=== PATIENT | female | born 1960 | race Caucasian/White ===

== ENCOUNTER 2018-08-17 22:23 | Emergency (ER) | payer MEDICAID ==
[~2018-08-17] VITALS: Ht 165.1 cm; Wt 67.6 kg
[2018-08-17 22:30] VITALS: BP 140/56
--- NOTE | 2018-08-17 22:32 | NUR ---
TO LOBBY A/W BED, AMBULATORY
--- NOTE | 2018-08-17 23:00 | NUR ---
PT AMBULATED TO BED 6
[2018-08-17] MEDS ORDERED: KETOROLAC 60 MG/2 ML VIAL IM ONE (23:40)
--- NOTE | 2018-08-18 00:04 | NUR ---
PT STATES SHE IS ALLERGIC TO TORADOL. MED GIVES HER A RASH AND MAKES THROAT ITCHY. Addendum: 08/18/18 at [address] MIRANDA NOTIFIED.
[2018-08-18 00:25] VITALS: BP 140/56
--- NOTE | 2018-08-18 00:25 | NUR ---
Patient discharged with v/s stable. Written and verbal after care instructions given and explained. Patient alert, oriented and verbalized understanding of instructions. Ambulatory with steady gait. All questions addressed prior to discharge. ID band removed. Patient advised to follow up with PMD. Rx of LACTULOSE, ROBAXIN, MIRALAX, AND NAPROSYN given. Patient educated on indication of medication including possible reaction and side effects. Opportunity to ask questions provided and answered.
== END 2018-08-18 00:25 | disposition home or self-care (01) ==
LOC: MED 22:23
DX: M54.42 Lumbago with sciatica, left side (principal); K59.00 Constipation, unspecified; M25.552 Pain in left hip; G43.909 Migraine, unspecified, not intractable, without status migrainosus; Z88.0 Allergy status to penicillin
CPT/HCPCS: 99284; J1885

== ENCOUNTER 2019-05-12 13:48 | Inpatient (IN) | payer MEDICAID ==
[~2019-05-12] VITALS: Ht 157.5 cm; Wt 59.0 kg
[2019-05-12 14:10] VITALS: BP 109/66
--- NOTE | 2019-05-12 14:16 | NUR ---
PT WHEELCHAIRED TO ER BED 04
--- NOTE | 2019-05-12 14:17 | NUR ---
INFORMED DR MARTINEZ OF PT STATUS. NO CHANGE IN ORDERS.
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
[2019-05-12] MEDS ORDERED: ACETAMINOPHEN EXTRA STRENGTH 500 MG TAB PO ONE (14:35)
[2019-05-12] MEDS ORDERED: ACETAMINOPHEN EXTRA STRENGTH 500 MG TAB ONE (14:36)
--- NOTE | 2019-05-12 15:03 | NUR ---
REPORT TO SHEMAR ALANIS. PRIMARY NURSE.
--- NOTE | 2019-05-12 15:48 | NUR ---
DR. MARTINEZ AT BEDSIDE.
--- NOTE | 2019-05-12 16:00 | NUR ---
PT TAKEN TO BATHROOM FOR URINE SAMPLE VIA WHEELCHAIR.
[2019-05-12] MEDS ORDERED: NACL 0.9% 1,000 ML IV SCH (16:02)
[2019-05-12] MEDS ORDERED: LEVOFLOXACIN 500 MG/D5W PREMIX 100 ML IV ONE (16:05)
--- NOTE | 2019-05-12 16:19 | NUR ---
XR AT BEDSIDE.
[2019-05-12 16:31] LABS: BASOPHILS # (AUTO) 0.1 K/uL (0.00-0.22); BASOPHILS % (AUTO) 0.7 % (0.0-2.0); EOSINOPHILS % (AUTO) 0.1 % (0.0-4.0); HEMATOCRIT 39.5 % (36-48); LYMPHOCYTES # (AUTO) 1.5 K/uL (2.5-16.5); LYMPHOCYTES % (AUTO) 12.2 % (20.5-51.1); MEAN CORPUSCULAR HEMOGLOBIN 30 pg (27-31); MEAN CORPUSCULAR HGB CONC 33 g/dL (33-37); MEAN CORPUSCULAR VOLUME 89.7 fL (80-94); MONOCYTES # (AUTO) 1.2 K/uL (0.8-1.0); NEUTROPHILS # (AUTO) 9.1 K/uL (1.8-7.7); PLATELET COUNT (AUTO) 294 K/uL (140-450); RED CELL DISTRIBUTION WIDTH 14.1 % (11.6-13.7); WHITE BLOOD COUNT (AUTO) 11.9 K/uL (4.8-10.8)
[2019-05-12 16:40] LABS: BILIRUBIN,URINE NEGATIVE (NEGATIVE); BLOOD, URINE 1+ (NEGATIVE); COLOR,URINE ORANGE (YELLOW); LEUKOCYTE ESTERASE ,URINE 2+ (NEGATIVE); NITRITE, URINE POSITIVE (NEGATIVE); UGLUCOSE NEGATIVE (NEGATIVE)
[2019-05-12 16:41] LABS: ALBUMIN 3.3 g/dL (3.4-5.0); ANION GAP 9.2 (8-16); CARBON DIOXIDE 28.5 mmol/L (21-32); CREATININE 0.9 mg/dL (0.6-1.3); POTASSIUM 3.7 mmol/L (3.5-5.1); TOTAL BILIRUBIN 0.7 mg/dL (0.0-1.0)
[2019-05-12 16:48] LABS: APPEARANCE,URINE CLOUDY (CLEAR)
[2019-05-12 16:49] LABS: BARBITURATE, URINE NEGATIVE ng/ml (NEG <=200); BENZODIAZEPINE, URINE NEGATIVE ng/mL (NEG <=200); CANNABINOID, URINE POSITIVE ng/mL (NEG <=50); COCAINE, URINE NEGATIVE ng/mL (NEG <=300); OPIATE, URINE NEGATIVE ng/mL (NEG <=2000); PHENCYCLIDINE SCREEN,URINE NEGATIVE ng/mL (NEG <=25)
[2019-05-12 17:01] LABS: RBC,URINE 0-5 /HPF (0-5); WBC,URINE TOO MANY TO COUNT /HPF (0-5)
[2019-05-12] MEDS ORDERED: ONDANSETRON 4 MG/2 ML VIAL IVP PRN (17:25)
--- NOTE | 2019-05-12 17:27 | NUR ---
PT ASLEEP IN BED.
--- NOTE | 2019-05-12 17:27 | NUR ---
NO DISTRESS, RR EVEN.
[2019-05-12 18:25] LABS: FREE T4 (FREE THYROXINE) 0.92 ng/dL (0.76-1.46); MAGNESIUM 2.3 mg/dL (1.8-2.4); PHOSPHORUS 2.8 mg/dL (2.5-4.9); THYROID STIMULATING HORMONE 0.36 uIU/mL (0.34-3.74)
--- NOTE | 2019-05-12 18:30 | NUR ---
Patient will be admitted to care of MILKA GUERRIER. Admited to TELE. Will go to room 120A. Belongings list completed. Report to SHEMAR GRAFF.
[2019-05-12 18:37] LABS: PROTHROMBIN TIME 9.8 secs (10.8-13.4)
--- NOTE | 2019-05-12 19:20 | NUR ---
BUTTON RECLAIMER CALLED SHE SAID THE PT IS FOR ABD. US - BUT THE PT JUST ADMITED 183 SO PT NOT YET ON FASTING AND THE US VOCATIONAL CASE MANAGER SAID THE PT HAVE TO BE NPO AT LEAST AN HRS.
[2019-05-12 19:30] VITALS: BP 122/69
--- NOTE | 2019-05-12 19:30 | NUR ---
RECIEVED PT A LITTLE BIT DROWSY / SLEEPY - ON DRUGS (+) ON AMPHETAMINE (+) CANNABIS -BUT CAN OBEY COMMANDS , CAN ADDRESS HER NEEDS SUCH I WANT TO GO TO RESTROOM. IV SITE INTACT AND PATENT . W/ INFECTED WOUND ON LEFT 3RD DIGIT FINGER . C/O MIGRAINE ELIAS- WILL REFER TO CURLY . AMBULATORY WITH ASSIST . PLAN OF CARE DISCUSSED AND VERBALIZE UNDERSTANDING- CALL LIGHT WITHIN REACH . ON SAFETY / FALL PRECATION PROTOCOL - BEDSIDE COMMODE PROVIDED - REMINDS HER NOT TO GO TO BATHROOM OR ON BEDSIDE COMMODE BY HERSELF - FALL RISK . OFFER SOMETHING TO EAT AND INFORM HER SHE WILL BE ON NPO FOR US ABD. COMPLETEW , WILL CONT. TO MONITOR.
[2019-05-12] MEDS: NACL 0.9% 1,000 ML IV SCH (20:24)
[2019-05-12] MEDS: DOCUSATE SODIUM 100 MG GELCAP PO SCH (20:28)
[2019-05-12] MEDS: APAP/BUTAL/CAFF 325/50/40 MG 1 TAB PO PRN (20:42)
--- NOTE | 2019-05-12 22:00 | NUR ---
MADE ROUNDS , SHE SAID ELIAS IS REDUCED - NO S/ S OF ACUTE DISTRESS NOTED AT THIS TIME. CALL LIGHT WITHIN REACH.
[2019-05-12 23:01] LABS: ANION GAP 9.4 (8-16); CARBON DIOXIDE 29.9 mmol/L (21-32); CREATININE 0.9 mg/dL (0.6-1.3); POTASSIUM 4.3 mmol/L (3.5-5.1)
[2019-05-13] VITALS: BP 111/60
--- NOTE | 2019-05-13 | NUR ---
MADE ROUNDS , NO S/ S OF ACUTE DISTRESS NOTED AT THIS TIME , WILL CONT. TO MONITOR.
--- NOTE | 2019-05-13 02:00 | NUR ---
MADE ROUNDS , SLEEPING - CHEST RISE AND FALL EQUALLY , WILL CONT . TO MONITOR.
[2019-05-13 04:00] VITALS: BP 115/70
[2019-05-13] MEDS: ACETAMINOPHEN 325 MG TAB PO PRN (04:21)
[2019-05-13] MEDS: NACL 0.9% 1,000 ML IV SCH ×3 (04:29→23:21)
--- NOTE | 2019-05-13 06:26 | NUR ---
PATIENT HAS BEEN SCREENED AND CATEGORIZED HIGH NUTRITION RISK. PATIENT WILL BE SEEN WITHIN 1-2 DAYS OF ADMISSION. 05/14/19-05/15/19 ABEBE SOTO MS, RDN
[2019-05-13 07:09] LABS: CHOL/HDL RATIO 2.3 (1-4.5); MAGNESIUM 2.1 mg/dL (1.8-2.4); PHOSPHORUS 2.2 mg/dL (2.5-4.9)
[2019-05-13 07:12] LABS: ANION GAP 12.7 (8-16); CARBON DIOXIDE 24.1 mmol/L (21-32); CREATININE 0.8 mg/dL (0.6-1.3); POTASSIUM 3.8 mmol/L (3.5-5.1)
[2019-05-13 07:17] LABS: BASOPHILS % (AUTO) 0.4 % (0.0-2.0); EOSINOPHILS % (AUTO) 0.1 % (0.0-4.0); HEMATOCRIT 36.8 % (36-48); HEMOGLOBIN 12.1 g/dL (12.0-16.0); LYMPHOCYTES # (AUTO) 1.1 K/uL (2.5-16.5); LYMPHOCYTES % (AUTO) 12.4 % (20.5-51.1); MEAN CORPUSCULAR HEMOGLOBIN 30 pg (27-31); MEAN CORPUSCULAR HGB CONC 33 g/dL (33-37); MEAN CORPUSCULAR VOLUME 89.7 fL (80-94); MONOCYTES # (AUTO) 1.1 K/uL (0.8-1.0); MONOCYTES % (AUTO) 12.4 % (1.7-9.3); NEUTROPHILS # (AUTO) 6.5 K/uL (1.8-7.7); NEUTROPHILS % (AUTO) 74.7 % (42.2-75.2); PLATELET COUNT (AUTO) 247 K/uL (140-450); WHITE BLOOD COUNT (AUTO) 8.8 K/uL (4.8-10.8)
--- NOTE | 2019-05-13 07:22 | NUR ---
RECEIVED BEDSIDE REPORT FROM HYDRAMATIC SPECIALIST NURSE, PT IS AWAKE IN BED, NO S/S OF ACUTE DISTRESS OR SOB NOTED. PT IS ON ROOM AIR, SKIN IS INTACT. BROWN CLOSED WOUND NOTED ON THE L HAND THIRD FINGER. PT HAS L AC 20 G IV, INFUSING NS 100 ML/HR. COMMODE IS AT BEDSIDE. CALL LIGHT IS WITHIN REACH. WILL CONTINUE TO MONITOR.
[2019-05-13 08:00] VITALS: BP 113/67
[2019-05-13 08:32] LABS: HEPATITIS A ANTIBODY IGM Negative (Negative); HEPATITIS B CORE AB TOTAL Negative (Negative); HEPATITIS B SURFACE ANTIBODY Non Reactive (.); HEPATITIS B SURFACE ANTIGEN Negative (Negative)
[2019-05-13] MEDS: DOCUSATE SODIUM 100 MG GELCAP PO SCH ×2 (08:53→21:00)
[2019-05-13] MEDS: APAP/BUTAL/CAFF 325/50/40 MG 1 TAB PO PRN (08:53)
[2019-05-13] MEDS: LEVOFLOXACIN 750 MG/D5W PREMIX 150 ML IV SCH (08:53)
[2019-05-13] MEDS: LACTOBACILLUS RHAMNOSUS GG 1 EACH CAP PO SCH (08:53)
--- NOTE | 2019-05-13 09:06 | NUR ---
AM MEDS ADMINISTERED, PT TOLERATED WELL.
--- NOTE | 2019-05-13 14:01 | NUR ---
OBTAINED CONSENT FOR L 3RD FINGER I&D
[2019-05-13 16:00] VITALS: BP 124/59
--- NOTE | 2019-05-13 19:20 | NUR ---
RECEIVED PATIENT FROM AM SHIFT NURSE IN STABLE CONDITION FOR CONTINUITY OF CARE. RESPIRATIONS EVEN, UNLABORED. IV SITE TO LEFT AC 20G PATENT/INTACT, INFUSING FLUIDS WELL. NO C/O PAIN. NO S/SX ACUTE DISTRESS. CALL LIGHT WITHIN REACH. WILL CONTINUE TO MONITOR.
--- NOTE | 2019-05-13 19:30 | NUR ---
ENDORSED PT TO DORMITORY KEEPER NURSE IN STABLE CONDITION.
--- NOTE | 2019-05-13 20:30 | NUR ---
PATIENT PICKED UP FOR PROCEDURE. WILL AWAIT PATIENT'S RETURN.
[2019-05-13] MEDS ORDERED: BUPIVACAINE-MPF 0.5% 10 ML VIAL INJ ONE (22:13)
[2019-05-13] MEDS ORDERED: SEVOFLURANE 250 ML BTL INH ONE (22:25)
[2019-05-13] MEDS ORDERED: ePHEDrine 50 MG/ML VIAL ONE (22:25)
[2019-05-13] MEDS ORDERED: PROPOFOL 200 MG/20 ML VIAL IV ONE (22:25)
[2019-05-13] MEDS ORDERED: fentaNYL 0.05 MG/ML VIAL ONE (22:25)
[2019-05-13] MEDS ORDERED: PHENYLEPHRINE 10 MG/ML VIAL ONE (22:25)
[2019-05-13] MEDS ORDERED: MIDAZOLAM 2 MG/2 ML VIAL ONE (22:25)
[2019-05-13] MEDS ORDERED: ONDANSETRON 4 MG/2 ML VIAL IVP PRN (22:55)
[2019-05-13] MEDS ORDERED: HYDROmorphone 1 MG/ML AMP IVP PRN (22:55)
[2019-05-13] MEDS ORDERED: NEOMYCIN/POLYMYXIN/BACITRACIN OIN 15 GM TUBE TP ONE (23:08)
[2019-05-14] VITALS: BP 106/66
--- NOTE | 2019-05-14 00:12 | NUR ---
PATIENT RETURNED FROM OR VIA GURNEY. DRESSING NOTED TO 3RD DIGIT OF LEFT HAND. NO C/O PAIN. NO S/SX ACUTE DISTRESS. IV SITE NOTED TO RIGHT AC 20G, INFUSING FLUIDS WELL. CALL LIGHT WITHIN REACH. WILL CONTINUE TO MONITOR.
--- NOTE | 2019-05-14 01:15 | NUR ---
PATIENT STATED SHE WAS VERY HUNGRY. JELLO WAS GIVEN AND TOLERATED WELL. PATIENT STATED SHE WAS COMFORTABLE AND READY TO SLEEP. NO S/SX ACUTE DISTRESS. CALL LIGHT WITHIN REACH. WILL CONTINUE TO MONITOR.
--- NOTE | 2019-05-14 03:13 | NUR ---
PATIENT ASLEEP AND IN STABLE CONDITION. NO C/O PAIN. NO S/SX ACUTE DISTRESS. CALL LIGHT WITHIN REACH. WILL CONTINUE TO MONITOR.
[2019-05-14] MEDS: NACL 0.9% 1,000 ML IV SCH ×2 (05:30→18:10)
--- NOTE | 2019-05-14 05:53 | NUR ---
MADE ROUNDS. PATIENT CONTINUES IN STABLE CONDITION. NO C/O PAIN. NO S/SX ACUTE DISTRESS. CALL LIGHT WITHIN REACH. WILL CONTINUE TO MONITOR.
[2019-05-14] MEDS: APAP/BUTAL/CAFF 325/50/40 MG 1 TAB PO PRN ×2 (06:27→10:24)
--- NOTE | 2019-05-14 06:27 | NUR ---
PATIENT C/O 310 ACHING HEADACHE. MEDICATED ORDERED. CALL LIGHT WITHIN REACH. WILL CONTINUE TO MONITOR.
--- NOTE | 2019-05-14 07:18 | NUR ---
ENDORSED PATIENT TO AM SHIFT NURSE IN STABLE CONDITION FOR CONTINUITY OF CARE.
[2019-05-14 07:49] LABS: ANION GAP 10.8 (8-16); CARBON DIOXIDE 25.9 mmol/L (21-32); CREATININE 0.7 mg/dL (0.6-1.3); POTASSIUM 3.7 mmol/L (3.5-5.1)
[2019-05-14 07:50] LABS: BASOPHILS % (AUTO) 0.7 % (0.0-2.0); EOSINOPHILS % (AUTO) 0.2 % (0.0-4.0); HEMATOCRIT 33.6 % (36-48); LYMPHOCYTES # (AUTO) 1.5 K/uL (2.5-16.5); LYMPHOCYTES % (AUTO) 24.1 % (20.5-51.1); MEAN CORPUSCULAR HEMOGLOBIN 29 pg (27-31); MEAN CORPUSCULAR HGB CONC 33 g/dL (33-37); MEAN CORPUSCULAR VOLUME 89.7 fL (80-94); MONOCYTES % (AUTO) 15.3 % (1.7-9.3); NEUTROPHILS # (AUTO) 3.8 K/uL (1.8-7.7); NEUTROPHILS % (AUTO) 59.7 % (42.2-75.2); PLATELET COUNT (AUTO) 247 K/uL (140-450); RED BLOOD CELL COUNT(AUTO) 3.74 MIL/uL (4.20-5.40); RED CELL DISTRIBUTION WIDTH 13.7 % (11.6-13.7); WHITE BLOOD COUNT (AUTO) 6.3 K/uL (4.8-10.8)
[2019-05-14 08:00] VITALS: BP 97/52
[2019-05-14 08:14] LABS: MAGNESIUM 2.2 mg/dL (1.8-2.4); PHOSPHORUS 2.8 mg/dL (2.5-4.9)
[2019-05-14] MEDS: LEVOFLOXACIN 750 MG/D5W PREMIX 150 ML IV SCH (08:40)
[2019-05-14] MEDS: LACTOBACILLUS RHAMNOSUS GG 1 EACH CAP PO SCH (08:41)
[2019-05-14] MEDS: DOCUSATE SODIUM 100 MG GELCAP PO SCH ×2 (08:42→21:14)
--- NOTE | 2019-05-14 08:42 | NUR ---
ORDERED MEDICATIONS GIVEN. PATIENT TOLERATED THEM. PT C/O OF TOLERABLE PAIN, DECLINED PRN PAIN MEDICATION. SAFETY PRECAUTIONS IN PLACE, ALL LIGHT WITHIN REACH, WILL CONTINUE TO MONITOR PATIENT.
--- NOTE | 2019-05-14 12:30 | NUR ---
PATIENT AMBULATED OFF FLOOR WITH RN AND . PATIENT TOOK ALL HIS BELONGINGS WITH HIM. PATIENT IN STABLE CONDITION. Addendum: 05/14/19 at 1246 by Chaparro Schaefer RN WRONG PATIENT.
[2019-05-14] MEDS ORDERED: HYDROcodone/APAP 5/325 MG 1 TAB TAB PO PRN (13:35)
[2019-05-14 16:20] VITALS: BP 115/69
[2019-05-14] MEDS ORDERED: MORPHINE SULFATE 2 MG/ML SYR IVP PRN (17:05)
--- NOTE | 2019-05-14 20:30 | NUR ---
RECIEVED WI AAOX4 , NID , BEARABLE PAIN SHE SAID , SURGICAL DRESSING DRY AND INTACT , POC DISCUSSED AND VERBALIZE UNDERSTANDING , WILL CONT. TO MONITOR.
[2019-05-14] MEDS: ACETAMINOPHEN 325 MG TAB PO PRN (21:14)
[2019-05-14] MEDS ORDERED: LACT10CA PO (22:03)
[2019-05-14] MEDS ORDERED: LEVO750T2 PO (22:03)
--- NOTE | 2019-05-14 22:40 | NUR ---
SIGNED THE AMA FORM, IV CANULLA REMOPVED - NEEDLE INTACT - MINIMAL BLEEDING - PROCEDURE TOLARETED WELL , ID BAND REMOVED.
--- NOTE | 2019-05-14 22:45 | NUR ---
DISCHARGED AMA , AMBULATORY , STABLE CONDITION , ACCOMPANIED BY FRIEND.
--- NOTE | 2019-05-15 09:57 | NUR ---
Wound consult not done, pt discharged.
== END 2019-05-14 22:45 | disposition left against medical advice (07) | DRG 364 ==
LOC: MED 13:48 → MTU 18:29
PROVIDERS: ADMIT General Practice; ATTEND General Practice
PROC: 0HBQXZZ Excision of Finger Nail, External Approach (ICD-10-PCS; 2019-05-13)
PROC: 0JBK0ZZ Excision of Left Hand Subcutaneous Tissue and Fascia, Open Approach (ICD-10-PCS; principal; 2019-05-13 19:00)
DX: L03.012 Cellulitis of left finger (principal); E87.1 Hypo-osmolality and hyponatremia; N39.0 Urinary tract infection, site not specified; F12.10 Cannabis abuse, uncomplicated; F15.10 Other stimulant abuse, uncomplicated; Z53.29 Procedure and treatment not carried out because of patient's decision for other reasons; L60.0 Ingrowing nail; L02.512 Cutaneous abscess of left hand; K80.20 Calculus of gallbladder without cholecystitis without obstruction; R51 Headache; Z88.0 Allergy status to penicillin; Z88.8 Allergy status to other drugs, medicaments and biological substances; Z71.51 Drug abuse counseling and surveillance of drug abuser
CPT/HCPCS: 36415; 71045; 73130; 76705; 80048; 80053; 80305; 81001; 81025; 82140; 82150; 83036; 83605; 83690; 83735; 83880; 84100; 84439; 84443; 84484; 85025; 85610; 85730; 86704; 86706; 86708; 86709; 86803; 87040; 87070; 87075; 87081; 87086; 87186; 87205; 87340; 87804; 88304; 88312; 93005; 99285; J1644; J1956; J2250; J2270; J2370; J2704; J3010; J3490; J7030; Q0092

== ENCOUNTER 2021-06-26 11:32 | Emergency (ER) | payer MEDICAID ==
[~2021-06-26] VITALS: Ht 165.1 cm; Wt 76.7 kg
[~2021-06-26 11:32] MED LIST: LACT10CA PO; LEVO750T2 PO
[2021-06-26 11:48] VITALS: BP 121/77
[2021-06-26] MEDS ORDERED: predniSONE 20 MG TAB PO ONE (12:50)
[2021-06-26] MEDS ORDERED: NITROFURANTOIN 100 MG CAP PO SCH (12:50)
[2021-06-26] MEDS ORDERED: ACETAMINOPHEN EXTRA STRENGTH 500 MG TAB PO ONE (12:50)
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
--- NOTE | 2021-06-26 13:21 | NUR ---
WALLPAPER INSPECTOR AND SHIPPER WORKER WITH PT.
[2021-06-26 13:41] VITALS: BP 121/77
--- NOTE | 2021-06-26 13:41 | NUR ---
PT LEFT WITHOUT PAPERWORK, PA AWARE.
[2021-06-26] MEDS ORDERED: PRED20TA5 PO (14:01)
[2021-06-26] MEDS ORDERED: DIPH25TA53 PO (14:01)
[2021-06-26] MEDS ORDERED: NITR100C7 PO (14:01)
--- NOTE | 2021-06-26 14:02 | NUR ---
DC PLANNING: LIZ WAS CALLED [facility]/ED TO MEET WITH PATIENT AND DISCUSS RESOURCES FOR HOUSING AND BASIC NEEDS ASSISTANCE. SW MET WITH PATIENT WHO STATED HAVING ISSUES FINDING HOUSING AND LIVING IN HER CAR FOR ABOUT A MONTH. SW DISCUSSED WITH PATIENT HER OPTIONS IN GOING TO TALK TO DPSS WORKER ABOUT ASSISTANCE WITH BASIC NEEDS SUCH FOOD, GENERAL RELIEF AND VOUCHER FOR HOUSING. DISCUSSED RESOURCES AVAILABLE TO HER IN THIS AREA AND PROVIDED PATIENT WITH LIST OF RESOURCES FOR HOUSING IN THE AREA FROM [employer]ERGENC[employer]S TO TRANSITIONAL HOUSING AND OTHER RESOURCES FOR FOOD, CLOTHING. PATIENT WAS VERY HAPPY TO GET ALL THOSE RESOURCES AND THANKED LIZ FOR THE MEETING AND INFORMATION PROVIDED. SW WILL FOLLOW UP NEEDED.
== END 2021-06-26 13:41 | disposition home or self-care (01) ==
LOC: MED 11:32
DX: N39.0 Urinary tract infection, site not specified (principal); R21 Rash and other nonspecific skin eruption; R51.9 Headache, unspecified; Z88.0 Allergy status to penicillin; Z79.899 Other long term (current) drug therapy; Z88.8 Allergy status to other drugs, medicaments and biological substances; Z59.00 Homelessness unspecified
CPT/HCPCS: 81002; 81025; 99284; J7512; Q0163